=== PATIENT | male | born 1960 | race Caucasian/White ===

== ENCOUNTER 2016-09-12 12:40 | Inpatient (IN) | payer OTHER ==
[2016-09-12 15:37] VITALS: BMI 24.3
--- NOTE | 2016-09-12 15:49 | HP ---
Admission [facility] Chief Complaint: REHAB TX FOR PERCOCETS AND MARIJUANA DEPENDENCE Allergies/Adverse Reactions: Allergies Allergy/AdvReac Type Severity Reaction Status Date / Time No Known Allergies Allergy Verified 09/12/16 15:30 History of Present Illness: 56 Y/O H/M WITH A HX PERCOCETS AND MARIJUANA DEPENDENCE SEEKING REHAB TX. PT IS ON [facility] WITH METHADONE 50 MG PO DAILY. Exam Limitations: No Limitations - Ebola screening Have you traveled outside of the country in the last 21 days: No Have you had contact with anyone from an Ebola affected area: No Have you been sick,other than usual withdrawal symptoms: No Do you have a fever: No - Review of Systems Constitutional: Diaphoresis, Loss of Appetite, Changes in sleep (ON SEROQUEL) EENT: reports: Blurred Vision (WEARS GLASSES), Tearing, Nose Congestion, Dental Problems (UPPER/LOWER DENTURES) Respiratory: reports: Shortness of Breath (COPD/ASTHMA HX), Wheezing Cardiac: reports: No Symptoms Reported GI: reports: Poor Appetite, Indigestion (GERD IN THE PAST AND IN REMISSION), Abdominal cramping (DUE TO WITHDRAWAL SX) : reports: No Symptoms Reported Musculoskeletal: reports: Back Pain, Joint Pain, Muscle Pain Integumentary: reports: No Symptoms Reported Neuro: reports: No Symptoms reported Endocrine: reports: No Symptoms Reported Hematology: reports: No Symptoms Reported Psychiatric: reports: Orientated x3, Anxious, Depressed Other Systems: Reviewed and Negative Patient History - Patient Medical History Hx Anemia: No Hx Asthma: Yes (MDI) Hx Chronic Obstructive Pulmonary Disease (COPD): Yes (ON ALBUTEROL ) Hx Cancer: No Hx Cardiac Disorders: No Hx Congestive Heart Failure: No Hx Hypertension: No (ON/OFF) Hx Hypercholesterolemia: No Hx Pacemaker: No HX Cerebrovascular Accident: No Hx Seizures: No Hx Dementia: No Hx Diabetes: No Hx Gastrointestinal Disorders: Yes (GERD IN THE PAST BUT IN REMISSION.) Hx Liver Disease: No Hx Genitourinary Disorders: No Hx Sexually Transmitted Disorders: No Hx Renal Disease (ESRD): No Hx Thyroid Disease: No Hx Human Immunodeficiency Virus (HIV): No (NEGATIVE HX) Hx Hepatitis C: Yes (NOT TREATED) Hx Depression: Yes (ON MED) Hx Suicide Attempt: No (DENIES) Hx Bipolar Disorder: Yes (on seroquel and cymbalta hs) Hx Schizophrenia: No - Patient Surgical History Past Surgical History: Yes Hx Orthopedic Surgery: Yes (laminectomy 1997,) Other Surgical History: wrist sx 1990. Anesthesia Reaction: No - PPD History Previous Implant?: Yes Documented Results: Positive w/o proof Implanted On Prior R Admission?: No Results: PPD to be Administered?: No - Reproductive History Patient is a Female of Child Bearing Age (11 -55 yrs old): No (MALE) Patient : (N/A) - Smoking Cessation Smoking history: Current every day smoker Have you smoked in the past 12 months: Yes Aproximately how many cigarettes per day: 20 Hx Chewing Tobacco Use: No Initiated information on smoking cessation: Yes 'Breaking Loose' booklet given: 09/12/16 - Substance & Tx. History Hx Alcohol Use: No (DENIES) Hx Substance Use: Yes (PERCOCETS/MARIJUANA) Substance Use Type: Marijuana, Opiates Hx Substance Use Treatment: Yes (LAST TX AT [facility] ) - Substances Abused Marijuana/Hashish Route: Smoking Frequency: Daily Amount used: 1/4 OF OUNCE Age of first use: 17 Date of Last Use: 09/11/16 PERCOCET Route: Oral Frequency: Daily Amount used: 8-10 (10MG) Age of first use: 46 Date of Last Use: 09/11/16 Family Disease History - Family Disease History Family Disease History: [place]: Grandparent, Other: Sister (drug and alcohol ) Admission Physical Exam BHS - Vital Signs Vital Signs: Vital Signs - 24 hr 09/12/16 15:33 Temperature 98.0 F Pulse Rate 63 Respiratory 20 Rate Blood Pressure 131/78 - Physical General Appearance: Yes: No Apparent Distress HEENTM: Yes: EOMI, Normocephalic, IRMA, Pharynx Normal Respiratory: Yes: Chest Non-Tender, Lungs Clear, Normal Breath Sounds, No Respiratory Distress Neck: Yes: No masses,lesions,Nodules, Supple, Trachea in good position Breast: Yes: Breast Exam Deferred Cardiology: Yes: Regular Rhythm, Regular Rate, S1, S2 Abdominal: Yes: Normal Bowel Sounds, Non Tender, Soft Genitourinary: Yes: Other (N/C) Musculoskeletal: Yes: full range of Motion, Gait Steady Extremities: Yes: Normal Range of Motion, Non-Tender, Other (INGROWN HAIR WITH A SMALL BUMP UNDER LEFT ARMPIT.) Neurological: Yes: program management manager II-XII NML intact, Fully Oriented, Alert, Motor Strength 5/5 Integumentary: Yes: Dry, Warm Lymphatic: Yes: Within Normal Limits - Diagnostic (1) Cannabis dependence Current Visit: Yes Status: Chronic (2) Nicotine dependence Current Visit: Yes Status: Acute Qualifiers: Nicotine product type: cigarettes Substance use status: in withdrawal Qualified Code(s): F17.213 - Nicotine dependence, cigarettes, with withdrawal (3) COPD (chronic obstructive pulmonary disease) Current Visit: Yes Status: Chronic Qualifiers: Chronic bronchitis type: unspecified (4) Low back pain Current Visit: Yes Status: Chronic Qualifiers: Chronicity: chronic Back pain laterality: midline Sciatica presence : with sciatica Sciatica laterality: sciatica of left side Qualified Code(s): M54.42 - Lumbago with sciatica, left side (5) Methadone maintenance therapy patient Current Visit: Yes Status: Chronic Cleared for Admission [facility] - Detox or Rehab Claeared for Rehab Admission: Yes [facility] Breath Alcohol Content Breath Alcohol Content: 0 Urine Drug Screen - Results Drug Screen Negative: No Urine Drug Screen Results: THC-Marijuana, MTD-Methadone, OXY-Oxycodone
[2016-09-12] MEDS ORDERED: MAG HYDROX/AL HYDROX/SIMETH 30 ML UNIT-DOSE CUP PO PRN (16:00)
[2016-09-12] MEDS ORDERED: guaiFENesin/D-METHORPHAN HB 10 ML UNIT-DOSE CUPS PO PRN (16:00)
[2016-09-12] MEDS ORDERED: NICOTINE POLACRILEX 4 MG GUM BUC PRN (16:00)
[2016-09-12] MEDS ORDERED: MENTHOL/PHENOL 1 EACH UD MM PRN (16:00)
[2016-09-12] MEDS ORDERED: MAGNESIUM CITRATE 300 ML BOTTLE PO PRN (16:00)
[2016-09-12] MEDS ORDERED: P-EPHED 60MG/TRIPROLIDI 2.5MG TABLET PO PRN (16:00)
[2016-09-12] MEDS ORDERED: MAGNESIUM HYDROX 2400MG/30ML ORAL SUSPENSION 30 ML CUP PO PRN (16:00)
[2016-09-12] MEDS ORDERED: LOPERAMIDE HCL 2 MG CAPSULE PO PRN (16:00)
[2016-09-12] MEDS ORDERED: ALBUTEROL SO4 6.7 GM HFA INHALER IH PRN (16:02)
[2016-09-12] MEDS: NICOTINE 21 MG/24 HOURS TOPICAL PATCH TD SCH (19:03)
[2016-09-12] MEDS: IBUPROFEN 400 MG TABLET (FP) PO PRN (19:06)
[2016-09-12] MEDS: THIAMINE HCL 100 MG TABLET (FP) PO SCH (21:29)
[2016-09-12] MEDS: QUEtiapine FUMARATE 200 MG TABLET PO SCH (21:29)
[2016-09-12] MEDS ORDERED: diphenhydrAMINE HCL 50 MG CAPSULE PO PRN (22:00)
[2016-09-12] MEDS: BACITRACIN 0.9 GM PACKET TP SCH (22:18)
[2016-09-12 23:23] LABS: URINE APPEARANCE CLEAR; URINE BILIRUBIN NEGATIVE (NEGATIVE); URINE BLOOD NEGATIVE (NEGATIVE); URINE COLOR YELLOW; URINE GLUCOSE (UA) NEGATIVE (NEGATIVE); URINE KETONE NEGATIVE (NEGATIVE); URINE LEUK ESTERASE TRACE (NEGATIVE); URINE NITRITE NEGATIVE (NEGATIVE); URINE PROTEIN NEGATIVE (NEGATIVE)
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
[2016-09-13] MEDS ORDERED: METHADONE HCL 40 MG DISPERSABLE TABLET ONE (07:28)
[2016-09-13] MEDS ORDERED: METHADONE HCL 10 MG TABLET ONE (07:28)
[2016-09-13] MEDS ORDERED: METHADONE HCL 40 MG DISPERSABLE TABLET PO SCH (07:30)
[2016-09-13] MEDS: METHADONE 40 MG, METHADONE 10 MG PO SCH (07:31)
[2016-09-13] MEDS: PRENATAL VITAMINS W/ FOLIC ACID TABLET (FP) PO SCH (09:40)
[2016-09-13] MEDS: BACITRACIN 0.9 GM PACKET TP SCH ×2 (09:40→21:25)
[2016-09-13] MEDS: NICOTINE 21 MG/24 HOURS TOPICAL PATCH TD SCH (09:41)
[2016-09-13 10:17] LABS: MCH 30.3 pg (25.7-33.7); MCHC 33.1 g/dl (32.0-35.9); MEAN CELL VOLUME 91.4 fl (80-96); MEAN PLT VOLUME 7.4 fl (7.5-11.1); PLATELET COUNT 332 K/MM3 (134-434); RDW 14.6 % (11.9-15.9); WHITE BLOOD COUNT 6.3 K/mm3 (4.0-10.0)
[2016-09-13 11:20] LABS: ALBUMIN 3.8 g/dl (3.4-5.0); ALK PHOS 111 U/L (45-117); ANION GAP 7 (8-16); BILIRUBIN,TOTAL 0.7 mg/dL (0.2-1.0); CALCIUM 9.4 mg/dL (8.5-10.1); CO2 31 mmol/L (21-32); CREATININE 0.7 mg/dL (0.7-1.3); GLUCOSE,RANDOM 97 mg/dL (74-106); SGOT/AST 13 U/L (15-37); SGPT/ALT 18 U/L (12-78); TOT PROT 7.2 g/dl (6.4-8.2)
[2016-09-13] MEDS ORDERED: PNEUMOC 13-VAL CONJ-DIP CRM/PF 0.5 ML DISP.SYRIN IM ONE (12:00)
[2016-09-13] MEDS ORDERED: PNEUMOCOCCAL 23 VACCINE 0.5 ML VIAL IM ONE (12:00)
--- NOTE | 2016-09-13 12:22 | EKG ---
Test Reason : Blood Pressure : / mmHG Vent. Rate : 060 BPM Atrial Rate : 060 BPM P-R Int : 152 ms QRS Dur : 096 ms QT Int : 430 ms P-R-T Axes : 054 069 072 degrees QTc Int : 430 ms SINUS RHYTHM WITH PREMATURE ATRIAL COMPLEXES OTHERWISE NORMAL ECG NO PREVIOUS ECGS AVAILABLE Confirmed by DEB DELGADO MD ([id number]) on 09/13/2016 12:21:53 PM Referred By: Confirmed By:DEB DELGADO MD
[2016-09-13] MEDS: hydrOXYzine PAMOATE 25 MG CAPSULE (FP) PO PRN ×2 (17:05→21:25)
[2016-09-13] MEDS: QUEtiapine FUMARATE 200 MG TABLET PO SCH (21:24)
[2016-09-13] MEDS: THIAMINE HCL 100 MG TABLET (FP) PO SCH (21:24)
[2016-09-14] MEDS ORDERED: METHADONE HCL 10 MG TABLET ONE (04:05)
[2016-09-14] MEDS ORDERED: METHADONE HCL 40 MG DISPERSABLE TABLET ONE (04:05)
[2016-09-14] MEDS: METHADONE 40 MG, METHADONE 10 MG PO SCH (06:45)
[2016-09-14] MEDS: hydrOXYzine PAMOATE 25 MG CAPSULE (FP) PO PRN ×4 (06:47→21:24)
[2016-09-14] MEDS: PRENATAL VITAMINS W/ FOLIC ACID TABLET (FP) PO SCH (09:42)
[2016-09-14] MEDS: BACITRACIN 0.9 GM PACKET TP SCH ×2 (09:42→21:25)
[2016-09-14] MEDS: NICOTINE 21 MG/24 HOURS TOPICAL PATCH TD SCH (09:42)
[2016-09-14] MEDS: THIAMINE HCL 100 MG TABLET (FP) PO SCH (21:24)
[2016-09-14] MEDS: QUEtiapine FUMARATE 200 MG TABLET PO SCH (21:25)
[2016-09-15] MEDS ORDERED: METHADONE HCL 10 MG TABLET ONE (04:22)
[2016-09-15] MEDS ORDERED: METHADONE HCL 40 MG DISPERSABLE TABLET ONE (04:22)
[2016-09-15] MEDS: hydrOXYzine PAMOATE 25 MG CAPSULE (FP) PO PRN ×3 (06:17→17:08)
[2016-09-15] MEDS: METHADONE 40 MG, METHADONE 10 MG PO SCH (06:17)
[2016-09-15] MEDS: PRENATAL VITAMINS W/ FOLIC ACID TABLET (FP) PO SCH (10:18)
[2016-09-15] MEDS: NICOTINE 21 MG/24 HOURS TOPICAL PATCH TD SCH (10:18)
[2016-09-15] MEDS: BACITRACIN 0.9 GM PACKET TP SCH ×2 (10:20→21:32)
[2016-09-15] MEDS: CYPROHEPTADINE HCL 4 MG TABLET PO SCH (17:06)
[2016-09-15] MEDS: QUEtiapine FUMARATE 200 MG TABLET PO SCH (21:32)
[2016-09-15] MEDS: THIAMINE HCL 100 MG TABLET (FP) PO SCH (21:32)
[2016-09-16] MEDS ORDERED: METHADONE HCL 10 MG TABLET ONE (05:38)
[2016-09-16] MEDS ORDERED: METHADONE HCL 40 MG DISPERSABLE TABLET ONE (05:38)
[2016-09-16] MEDS: CYPROHEPTADINE HCL 4 MG TABLET PO SCH ×3 (06:38→16:35)
[2016-09-16] MEDS: METHADONE 40 MG, METHADONE 10 MG PO SCH (06:38)
[2016-09-16] MEDS: hydrOXYzine PAMOATE 25 MG CAPSULE (FP) PO PRN ×4 (06:39→22:06)
[2016-09-16] MEDS: ACETAMINOPHEN 325 MG TABLET (FP) PO PRN (09:48)
[2016-09-16] MEDS: NICOTINE 21 MG/24 HOURS TOPICAL PATCH TD SCH (09:48)
[2016-09-16] MEDS: PRENATAL VITAMINS W/ FOLIC ACID TABLET (FP) PO SCH (09:48)
[2016-09-16] MEDS: BACITRACIN 0.9 GM PACKET TP SCH ×3 (13:01→22:04)
[2016-09-16] MEDS: THIAMINE HCL 100 MG TABLET (FP) PO SCH (22:04)
[2016-09-16] MEDS: QUEtiapine FUMARATE 200 MG TABLET PO SCH (22:04)
[2016-09-17] MEDS ORDERED: METHADONE HCL 40 MG DISPERSABLE TABLET ONE (05:19)
[2016-09-17] MEDS ORDERED: METHADONE HCL 10 MG TABLET ONE (05:19)
[2016-09-17] MEDS: METHADONE 40 MG, METHADONE 10 MG PO SCH (06:40)
[2016-09-17] MEDS: CYPROHEPTADINE HCL 4 MG TABLET PO SCH ×3 (06:41→17:50)
[2016-09-17] MEDS: PRENATAL VITAMINS W/ FOLIC ACID TABLET (FP) PO SCH (09:26)
[2016-09-17] MEDS: BACITRACIN 0.9 GM PACKET TP SCH ×2 (09:26→21:32)
[2016-09-17] MEDS: NICOTINE 21 MG/24 HOURS TOPICAL PATCH TD SCH (09:26)
[2016-09-17] MEDS: hydrOXYzine PAMOATE 25 MG CAPSULE (FP) PO PRN ×2 (09:27→14:39)
[2016-09-17] MEDS: ACETAMINOPHEN 325 MG TABLET (FP) PO PRN (17:51)
[2016-09-17] MEDS: THIAMINE HCL 100 MG TABLET (FP) PO SCH (21:33)
[2016-09-17] MEDS: QUEtiapine FUMARATE 200 MG TABLET PO SCH (23:33)
[2016-09-18] MEDS ORDERED: METHADONE HCL 40 MG DISPERSABLE TABLET ONE (04:16)
[2016-09-18] MEDS ORDERED: METHADONE HCL 10 MG TABLET ONE (04:16)
[2016-09-18] MEDS: METHADONE 40 MG, METHADONE 10 MG PO SCH (06:46)
[2016-09-18] MEDS: IBUPROFEN 400 MG TABLET (FP) PO PRN (06:48)
[2016-09-18] MEDS: hydrOXYzine PAMOATE 25 MG CAPSULE (FP) PO PRN ×2 (06:48→11:57)
[2016-09-18 06:56] VITALS: BP 125/77; PULSE 59; TEMP 97.6
[2016-09-18] MEDS: CYPROHEPTADINE HCL 4 MG TABLET PO SCH ×2 (07:25→11:56)
[2016-09-18] MEDS: PRENATAL VITAMINS W/ FOLIC ACID TABLET (FP) PO SCH (09:41)
[2016-09-18] MEDS: BACITRACIN 0.9 GM PACKET TP SCH (09:42)
[2016-09-18] MEDS: NICOTINE 21 MG/24 HOURS TOPICAL PATCH TD SCH (09:42)
--- NOTE | 2016-09-18 13:08 | PN ---
[facility] Progress Note Note: Told by nurse that patient requests to leave against medical advice. Patient was asked by automotive service writer to come to his office exit interview. He said that he does not want to talk to anyone because he does not want his anger to get the best of him
== END 2016-09-18 13:52 | disposition left against medical advice (07) | DRG 770 ==
LOC: YASAS 12:40 → Y3W 16:46
PROVIDERS: ADMIT Psychiatry & Neurology Psychiatry; ATTEND Psychiatry & Neurology Psychiatry
PROC: HZ42ZZZ Group Counseling for Substance Abuse Treatment, Cognitive-Behavioral (ICD-10-PCS; principal; 2016-09-12)
DX: F11.20 Opioid dependence, uncomplicated (principal); F12.20 Cannabis dependence, uncomplicated; F17.213 Nicotine dependence, cigarettes, with withdrawal; L25.9 Unspecified contact dermatitis, unspecified cause; J45.909 Unspecified asthma, uncomplicated; J44.9 Chronic obstructive pulmonary disease, unspecified; B18.2 Chronic viral hepatitis C; F31.9 Bipolar disorder, unspecified; M54.42 Lumbago with sciatica, left side; R76.11 Nonspecific reaction to tuberculin skin test without active tuberculosis
CPT/HCPCS: 36415; 71020-TC; 80053; 81003; 81015; 85027; 86593; 93005; 93010